=== PATIENT | female | born 1965 | race African-American/Black ===

== ENCOUNTER → 2016-08-03 | Outpatient (CLI) | payer BC ==
[~2016-08-03] MED LIST: ADVAIR 250/28 DISKU1 IH; BETAPACE 120MG120 MG PO; BETAPACE 80MG80 MG PO; BYSTOLIC10 MG PO; CARDIZEM CD 18180 MG PO; CARDIZEM CD 24240 MG PO; CORDARONE200 MG/TAB PO; COUMADIN 5MG5 MG/TAB PO; COUMADIN 77.5 MG/TAB PO; FLECAINIDE PO; GLUCOSAMINE CHO1 CA2 PO; HCTZ 25MG TAB25 MG PO; IRON TABLETS325 MG PO; IRON325 M1 PO; LASIX 40MG TABL40 MG PO; LOPRESSOR 550 MG/TAB PO; LOPRESSOR50 MG PO; LOVENOX100 MG/ML SQ; LOVENOX150 MG/ML SC; MICARDIS HCT 251 TAB PO; MULTIPLE VITAMI1 CAP PO; NORCO 325 MG-101 TAB PO; NORVASC 10MG10 MG PO; OMEGA 31000 MG PO; PRILOSEC 20MG20 MG PO; PROVENTIL0.09 MG/A1 IH; ULTRAM 50MG TAB50 MG PO; VITAMIN B-1000 MCG/T PO; VITAMIND3 5000 PO; VOLTAREN GEL 1%1 TU TP; XARELTO20 MG PO
== END ==
LOC: MHCPAIN 08:54
DX: G89.29 Other chronic pain (principal); M47.27 Other spondylosis with radiculopathy, lumbosacral region; M51.16 Intervertebral disc disorders with radiculopathy, lumbar region
CPT/HCPCS: G0463

== ENCOUNTER 2016-08-06 06:55 | Outpatient (CLI) | payer BC ==
[2016-08-06] VITALS (18 sets, daily range): BP systolic 95–150; BP diastolic 66–107; PULSE 68–96; TEMP 97.2
[~2016-08-06] VITALS: Ht 175.3 cm; Wt 136.3 kg
[~2016-08-06 06:55] MED LIST changes: -CORDARONE200 MG/TAB PO; -NORCO 325 MG-101 TAB PO; -PRILOSEC 20MG20 MG PO; -VITAMIND3 5000 PO; -VOLTAREN GEL 1%1 TU TP
[2016-08-06 07:38] LABS: HEMATOCRIT 38.2 % (37.0-47.0); HEMOGLOBIN 12.1 g/dl (12.5-16.0); MEAN CELL VOLUME 78 fl (80.0-100.0); MEAN CORPUSCULAR HEMOGLOBIN 25 pg (27.0-31.0); MEAN CORPUSCULAR HGB CONC 32 g/dl (33.0-37.0); MEAN PLATELET VOLUME 9.3 fl (7.4-10.4); PLATELET COUNT 244 K/mm3 (130-400); REDCELL DISTRIBUTION WIDTH-CV 17.6 % (11.5-14.5); WHITE BLOOD COUNT 4.1 K/mm3 (4.8-10.8)
[2016-08-06 07:45] LABS: INR 1.6 (0.8-3.0); PROTHROMBIN TIME 18.2 SECONDS (9.7-12.8)
[2016-08-06 07:51] LABS: CREATININE, serum 0.82 mg/dL (0.52-1.25); POTASSIUM 3.5 mmol/L (3.4-5.0)
[2016-08-06] MEDS ORDERED: LOPRESSOR 550 MG/TAB PO (08:00)
[2016-08-06] MEDS ORDERED: CORDARONE200 MG/TAB PO (08:00)
[2016-08-06] MEDS ORDERED: CARDIZEM CD 18180 MG PO (08:02)
[2016-08-06] MEDS ORDERED: VOLTAREN GEL 1%1 TU TP (08:07)
[2016-08-06] MEDS ORDERED: PRILOSEC 20MG20 MG PO (08:08)
[2016-08-06] MEDS ORDERED: NORCO 325 MG-101 TAB PO (08:09)
[2016-08-06] MEDS ORDERED: VITAMIND3 5000 PO (08:11)
[2016-08-06] MEDS ORDERED: XARELTO20 MG PO (10:41)
== END 2016-08-06 11:07 | disposition home or self-care (01) ==
LOC: EUO 06:55 → COL.RAD 07:00 → EUO 11:07
PROVIDERS: Internal Medicine Cardiovascular Disease
DX: I48.0 Paroxysmal atrial fibrillation (principal); I08.1 Rheumatic disorders of both mitral and tricuspid valves; I70.0 Atherosclerosis of aorta; Z98.84 Bariatric surgery status; Z98.890 Other specified postprocedural states; E66.01 Morbid (severe) obesity due to excess calories; I10 Essential (primary) hypertension; G47.30 Sleep apnea, unspecified
CPT/HCPCS: J2175; J2250

== ENCOUNTER 2016-09-21 07:04 | Day surgery (SDC) | payer BC ==
[2016-09-21] VITALS (15 sets, daily range): BP systolic 126–142; BP diastolic 79–102; PULSE 61–92; TEMP 98.4
[~2016-09-21] VITALS: Ht 175.4 cm; Wt 137.8 kg
[~2016-09-21 07:04] MED LIST changes: +CORDARONE200 MG/TAB PO; +NORCO 325 MG-101 TAB PO; +PRILOSEC 20MG20 MG PO; +VITAMIND3 5000 PO; +VOLTAREN GEL 1%1 TU TP
[2016-09-21 08:26] LABS: CALCIUM 8.9 mg/dL (8.4-10.2); CREATININE, serum 0.64 mg/dL (0.52-1.25); POTASSIUM 3.4 mmol/L (3.4-5.0)
[2016-09-21 08:35] LABS: HEMATOCRIT 40.4 % (37.0-47.0); HEMOGLOBIN 12.9 g/dl (12.5-16.0); MEAN CELL VOLUME 76 fl (80.0-100.0); MEAN CORPUSCULAR HEMOGLOBIN 24 pg (27.0-31.0); MEAN CORPUSCULAR HGB CONC 32 g/dl (33.0-37.0); MEAN PLATELET VOLUME 9.4 fl (7.4-10.4); PLATELET COUNT 292 K/mm3 (130-400); RED BLOOD COUNT 5.33 M/mm3 (4.10-5.30); REDCELL DISTRIBUTION WIDTH-CV 19.4 % (11.5-14.5); WHITE BLOOD COUNT 4.5 K/mm3 (4.8-10.8)
[2016-09-21] MEDS ORDERED: CORDARONE200 MG/TAB PO (08:41)
[2016-09-21 08:59] LABS: INR 1.5 (0.8-3.0); PROTHROMBIN TIME 16.6 SECONDS (9.7-12.8)
== END 2016-09-21 11:32 | disposition home or self-care (01) ==
LOC: COL.CAR 07:04
PROVIDERS: Internal Medicine Cardiovascular Disease
DX: I48.91 Unspecified atrial fibrillation (principal); I08.3 Combined rheumatic disorders of mitral, aortic and tricuspid valves; I51.3 Intracardiac thrombosis, not elsewhere classified; Z79.01 Long term (current) use of anticoagulants; J45.909 Unspecified asthma, uncomplicated; G47.33 Obstructive sleep apnea (adult) (pediatric); I10 Essential (primary) hypertension; E53.8 Deficiency of other specified B group vitamins; D50.9 Iron deficiency anemia, unspecified; E66.01 Morbid (severe) obesity due to excess calories; Z68.41 Body mass index [BMI] 40.0-44.9, adult; I48.1 Persistent atrial fibrillation; F17.210 Nicotine dependence, cigarettes, uncomplicated
CPT/HCPCS: J2250; J3010

== ENCOUNTER 2018-12-16 06:40 | Day surgery (SDC) | payer BC ==
[~2018-12-16] VITALS: Ht 172.7 cm; Wt 128.0 kg
[~2018-12-16 06:40] MED LIST changes: +LASIX 20MG TABL20 MG PO; -LASIX 40MG TABL40 MG PO; +LOPRESSOR 225 MG/TAB PO
[2018-12-16 07:51] LABS: HEMOGLOBIN 11.1 g/dl (12.5-16.0); MEAN CELL VOLUME 76 fl (80.0-100.0); MEAN CORPUSCULAR HEMOGLOBIN 23 pg (27.0-31.0); MEAN CORPUSCULAR HGB CONC 30 g/dl (33.0-37.0); MEAN PLATELET VOLUME 8.9 fl (7.4-10.4); PLATELET COUNT 277 K/mm3 (130-400); RED BLOOD COUNT 4.85 M/mm3 (4.10-5.30); REDCELL DISTRIBUTION WIDTH-CV 19.2 % (11.5-14.5)
[2018-12-16 07:52] LABS: HEMATOCRIT 36.6 % (37.0-47.0)
[2018-12-16 07:54] LABS: INR 2.2 (0.8-3.0); PROTHROMBIN TIME 25.9 SECONDS (9.7-12.8)
[2018-12-16 07:56] LABS: PARTIAL THROMBOPLASTIN TIME 45.1 SECONDS (26.0-37.0)
[2018-12-16 08:00] LABS: CALCIUM 9.2 mg/dL (8.4-10.2); CREATININE, serum 0.71 (0.52-1.25); MAGNESIUM 1.5 mg/dL (1.6-2.3); POTASSIUM 3.3 mmol/L (3.4-5.0)
[2018-12-16 08:06] VITALS: BP 135/92; PULSE 87; TEMP 98.4
[2018-12-16] MEDS ORDERED: ZESTRIL40 MG PO (08:10)
[2018-12-16] MEDS ORDERED: ZOLOFT 50MG50 MG PO (08:11)
[2018-12-16] MEDS ORDERED: PACERONE400 MG PO (08:12)
[2018-12-16] MEDS ORDERED: LEGATRIN PM PO (08:13)
[2018-12-16] MEDS ORDERED: TUMS500 MG PO (08:14)
[2018-12-16 08:31] LABS: THYROID STIMULATING HORMONE 1.33 uIU/mL (0.465-4.680)
[2018-12-16 10:02] VITALS: BP 114/71; PULSE 66
--- NOTE | 2018-12-16 10:07 | NUR ---
Report from Tali Lopez.Patient observed awake and alert.,respirations even and unlabored.
[2018-12-16 10:20] VITALS: BP 117/71; PULSE 69
[2018-12-16 10:35] VITALS: BP 123/81; PULSE 77
[2018-12-16 10:50] VITALS: BP 130/79; PULSE 68
--- NOTE | 2018-12-16 11:11 | NUR ---
Discharge instructions given to pt.Pt verbalizes understadning.INT removed,catheter tip intact.Pt escortedout via wheelchair by KISHAN Davies.
== END 2018-12-16 11:13 | disposition home or self-care (01) ==
LOC: COL.CAR 06:40
PROVIDERS: Internal Medicine Cardiovascular Disease
DX: I48.0 Paroxysmal atrial fibrillation (principal); E66.01 Morbid (severe) obesity due to excess calories; I10 Essential (primary) hypertension; J45.909 Unspecified asthma, uncomplicated; D50.9 Iron deficiency anemia, unspecified; G47.33 Obstructive sleep apnea (adult) (pediatric); E53.8 Deficiency of other specified B group vitamins; I27.20 Pulmonary hypertension, unspecified; K21.9 Gastro-esophageal reflux disease without esophagitis; Z68.41 Body mass index [BMI] 40.0-44.9, adult; Z79.01 Long term (current) use of anticoagulants; Z87.891 Personal history of nicotine dependence
CPT/HCPCS: J2704; J7120

== ENCOUNTER 2022-08-11 15:54 | Inpatient (IN) | payer OTHER ==
[~2022-08-11] VITALS: Ht 172.7 cm; Wt 128.4 kg
[~2022-08-11 15:54] MED LIST changes: +AMBIEN 10MG10 MG PO; +AMBIEN CR 12.12.5 MG PO; +CATAPRES0.2 MG PO; +COZAAR100 MG PO; +DESYREL 100MG100 MG PO; +ELIQUIS 5MG PO; +LEGATRIN PM PO; +LIPITOR 40MG TA40 MG PO; +MULTAQ400 MG PO; +NORCO 325 MG-7.1 TAB PO; +PACERONE400 MG PO; +REXULTI3 MG PO; +TAZTIA180 PO; +TOPROL XL 25MG25 MG PO; +TUMS500 MG PO; +VERAPAMIL 440 MG/TAB PO; +VICODIN ES 7.5 PO; +VITAMIN B11000 MCG/M IM; +ZESTRIL40 MG PO; +ZOLOFT 100MG100 MG PO; +ZOLOFT 50MG50 MG PO
--- NOTE | 2022-08-11 18:30 | NUR ---
PT ADMITTED FROM [facility] WITH SOB, ELEVATED TROP, AND PARAINFLUENZA. PT AMBULATED TO BED INDEPENDENTLY. PT IS ON 2L NC. PT ORIENTED TO ROOM AND FLOOR. PT GIVEN CALL LIGHT AND INSTRUCTED TO CALL [facility] ALL NEEDS. ARELIS STEPHEN NOTIFIED OF PTS ARRIVAL. BIANKA VILLEGAS MALICK UPDATED ON THE PHONE WITH PTS CONSENT.
[2022-08-11 18:41] VITALS: BP 184/78; PULSE 81; TEMP 99.1
[2022-08-11] MEDS ORDERED: PACERONE100 MG PO (18:54)
[2022-08-11] MEDS ORDERED: PLAVIX 75MG TAB75 MG PO (18:56)
[2022-08-11] MEDS ORDERED: MITIGARE0.6 MG PO (18:57)
[2022-08-11] MEDS ORDERED: COLACE 100100 MG/CAP PO (18:58)
[2022-08-11] MEDS ORDERED: FERROUS SU325 MG/TAB PO (18:59)
[2022-08-11] MEDS ORDERED: FLOVENT 110MCG7.9 GM IH (19:00)
[2022-08-11] MEDS ORDERED: MOBIC15 MG PO (19:03)
[2022-08-11] MEDS ORDERED: ROBAXIN 75750 MG/TAB PO (19:04)
[2022-08-11] MEDS ORDERED: MULTI VITAMINS1 TAB PO (19:06)
[2022-08-11] MEDS ORDERED: PROTONIX 40MG T40 MG PO (19:08)
[2022-08-11] MEDS ORDERED: REXULTI3 MG PO (19:09)
[2022-08-11] MEDS ORDERED: RYBELSUS3 MG PO (19:11)
[2022-08-11 19:18] VITALS: BP 166/71; PULSE 69; TEMP 99
[2022-08-11 20:13] VITALS: BP_SYST 166
[2022-08-11 23:13] VITALS: BP 147/76; PULSE 78; TEMP 98.3
[2022-08-12] VITALS (11 sets, daily range): BP systolic 147–175; BP diastolic 74–89; PULSE 66–72; TEMP 97.5–98.8
[2022-08-12 08:00] LABS: BASO % 0.3 % (0.0-2.0); GRAN # 2.9 K/mm3 (1.4-6.5); GRAN % 84.3 % (42.2-75.2); LYMPH # 0.4 K/mm3 (1.2-3.4); LYMPH % 11.6 % (20.0-51.0); MEAN CELL VOLUME 71 fl (80.0-100.0); MEAN CORPUSCULAR HGB CONC 28 g/dl (33.0-37.0); MONO # 0.1 K/mm3 (0.1-0.6); MONO % 3.5 % (1.7-9.3); PLATELET COUNT 196 K/mm3 (130-400); RED BLOOD COUNT 4.54 M/mm3 (4.10-5.30); REDCELL DISTRIBUTION WIDTH-CV 20.6 % (11.5-14.5)
[2022-08-12 08:05] LABS: HEMOGLOBIN 9.1 g/dl (12.5-16.0); MEAN CORPUSCULAR HEMOGLOBIN 20 pg (27-31)
[2022-08-12 08:09] LABS: CALCIUM 9.5 mg/dL (8.4-10.2); CREATININE, serum 0.61 mg/dL (0.57-1.11); MAGNESIUM 1.8 mg/dL (1.6-2.6); POTASSIUM 3.7 mmol/L (3.5-4.5)
[2022-08-12 08:18] LABS: TROPONIN-I 0.032 ng/mL (0.00-0.033)
--- NOTE | 2022-08-12 10:17 | NUR ---
SW called pt to complete intake due to isolation status. Pt confirmed living in [place] and reports her mother and daughter live with her and she is their caregiver. Pt reports NOK as Giuseppe Jane, son, confirming phone number as [phone]. Pt denied having stairs in home. Pt denied DME and reports CPAC. Pt reports being independent at home. Pt confirmed PCP as Kirsten Emmanuel and uses [facility] in [place] for pharmacy without any issues retrieving and/or affording. Pt confirms DPOA designees on file. Pt denies any needs or issues. DC Plan Home
--- NOTE | 2022-08-12 14:32 | NUR ---
Shift assessment is done this morning. Patient complain pain 7/10. Pain medication is given and now it is improved to 3/10. Patient is on 2L of NC and denies any SOB at this time. Will continue to monitor.
[2022-08-12] MEDS ORDERED: CATAPRES0.2 MG PO (19:43)
[2022-08-13] VITALS (14 sets, daily range): BP systolic 124–184; BP diastolic 66–88; PULSE 65–80; TEMP 97.9–100.5
--- NOTE | 2022-08-13 05:18 | NUR ---
PT ASSESSED AT 2044 NO COMPLAINTS OF PAIN AT THAT TIME. PT FOUND TO BE ON RA SATING AT 90%. PATIENT RESTING COMFOTABLY IN CHAIR WATING TV. 0000 PATIENT NEEDED PLACED ON CPAP TO IMPROVE O2 SATURATION. 0400 PATIENT HAD HEADACHE RATED AT 7 NORCO GIVEN TO RELIEVE PAIN PT SWITCHED OVER TO NC AT 2L INFORMED PT THAT O2 IS STILL NEEDED TO MAINTAIN O2 ABOVE 92%.
--- NOTE | 2022-08-13 08:00 | NUR ---
Patient is resting on bed. Deinied any SOB or pain at this time. Will continue to monitor.
--- NOTE | 2022-08-13 11:32 | NUR ---
The patient contacted this SW. The patient provides that she needs a new nebulizer, but her pharmacy does not supply them. She inquired where she could order a new one from. BEAN informed her how [facility] supplies them. The patient would like to get one ordered through [facility]. BEAN staffed with the hospitalist. The patient is to tentatively discharge tomorrow. BEAN contacted [facility] & faxed faxed the nebulizer order to [facility]. [facility] plans to deliver the nebulizer to the patient's room prior to discharge. The patient remains on 2 liters of oxygen at this time. *Discharge plan: home. May need set up with home oxygen*
--- NOTE | 2022-08-13 19:03 | NUR ---
This nurse contacated Shara to fix the dose of Amiodarone. Patient confirm that she takes amiodarone 200mg, but it was ordered 300 mg. Shara said that she will correct the dose.
--- NOTE | 2022-08-13 19:34 | NUR ---
Patient awake, alert and oriented comfortably resting in the chair. PM assessment complete. Pt educated on fluid restriction. Oxygen at 2L, nasal cannula in place. No needs at this time.
--- NOTE | 2022-08-14 00:30 | NUR ---
Pt doing okay. Does have int cough where she is coughing up some thick white spututm. Lung sounds diminished in the bases and does have exp/ins crackles throughout. No pain complaints at this time
[2022-08-14 03:06] VITALS: BP 143/96; PULSE 67; TEMP 98.1
[2022-08-14 05:18] VITALS: BP_SYST 143
--- NOTE | 2022-08-14 05:38 | NUR ---
Pt doing okay. Having complaints of a headache, PRN given. pt denies any other needs, will continue to monitor
[2022-08-14 07:23] LABS: GRAN # 3.2 K/mm3 (1.4-6.5); LYMPH # 1.3 K/mm3 (1.2-3.4); LYMPH % 24.4 % (20.0-51.0); MEAN CELL VOLUME 70 fl (80.0-100.0); MEAN CORPUSCULAR HGB CONC 28 g/dl (33.0-37.0); MEAN PLATELET VOLUME 9.3 fl (7.4-10.4); MONO # 0.8 K/mm3 (0.1-0.6); MONO % 15.4 % (1.7-9.3); PLATELET COUNT 250 K/mm3 (130-400); REDCELL DISTRIBUTION WIDTH-CV 20.4 % (11.5-14.5)
[2022-08-14 07:29] LABS: HEMATOCRIT 33.4 % (37.0-47.0); HEMOGLOBIN 9.5 g/dl (12.5-16.0); MEAN CORPUSCULAR HEMOGLOBIN 20 pg (27-31)
[2022-08-14 07:38] LABS: ALBUMIN 3.2 gm/dL (3.5-5.0); CREATININE, serum 0.68 mg/dL (0.57-1.11); MAGNESIUM 1.7 mg/dL (1.6-2.6); PHOSPHOROUS 3.2 mg/dL (2.3-4.7); POTASSIUM 3.1 mmol/L (3.5-4.5)
[2022-08-14 07:45] VITALS: BP 174/82; PULSE 69; TEMP 98.6
--- NOTE | 2022-08-14 09:00 | NUR ---
Patient is resting in bed, alert and oriented x 4, VSS. Telemetry in place, NSR. Assessment completed, meds provided. No further needs at this time. Call light within reach.
[2022-08-14 09:33] VITALS: BP_SYST 174
[2022-08-14] MEDS ORDERED: PREDNISONE20 MG PO (09:37)
[2022-08-14] MEDS ORDERED: MUCUS RELIEF400 M1 PO (09:37)
[2022-08-14] MEDS ORDERED: CEFTIN500 MG PO (09:38)
[2022-08-14] MEDS ORDERED: DOXYCYCLINE 10100 MG PO (09:38)
[2022-08-14] MEDS ORDERED: ALBUTEROL0.83 MG/ML IH (09:40)
[2022-08-14] MEDS ORDERED: NORVASC 5MG5 MG/TAB PO (09:41)
--- NOTE | 2022-08-14 11:11 | NUR ---
The clinical team is ready to discharge the patient today. BEAN notified Taryn at [facility]. Taryn reports that they just delivered the nebulizer to the patient's room. The patient is to discharge back home today, 08/14. No additional needs at this time.
--- NOTE | 2022-08-14 11:37 | NUR ---
Patient was provided with discharge information, all questions answered. IV access and telemetry were discontinued.
== END 2022-08-14 11:52 | disposition home or self-care (01) | DRG 189 ==
LOC: MEDICAL 15:54
PROVIDERS: Student in an Organized Health Care Education/Training Program; ADMIT Internal Medicine
DX: J96.01 Acute respiratory failure with hypoxia (principal); I21.A1 Myocardial infarction type 2; I48.20 Chronic atrial fibrillation, unspecified; Z68.41 Body mass index [BMI] 40.0-44.9, adult; B34.8 Other viral infections of unspecified site; E87.70 Fluid overload, unspecified; E87.6 Hypokalemia; E78.5 Hyperlipidemia, unspecified; J45.909 Unspecified asthma, uncomplicated; G47.00 Insomnia, unspecified; E66.9 Obesity, unspecified; D64.9 Anemia, unspecified; K21.9 Gastro-esophageal reflux disease without esophagitis; F41.9 Anxiety disorder, unspecified; F32.A Depression, unspecified; I27.20 Pulmonary hypertension, unspecified; F17.210 Nicotine dependence, cigarettes, uncomplicated; G47.33 Obstructive sleep apnea (adult) (pediatric); I10 Essential (primary) hypertension; Z95.818 Presence of other cardiac implants and grafts; Z88.6 Allergy status to analgesic agent; Z88.8 Allergy status to other drugs, medicaments and biological substances; Z79.01 Long term (current) use of anticoagulants
CPT/HCPCS: J0696; J1650; J1940; J2920